=== PATIENT | female | born 1990 | race Caucasian/White ===

== ENCOUNTER → 2022-02-28 | Outpatient (CLI) | payer BC ==
--- NOTE | 2022-02-28 20:25 | XR ---
EXAMINATION TYPE: XR foot complete LT DATE OF EXAM: 02/28/2022 COMPARISON: X-ray dated 01/23/2014 INDICATION: Pain. No trauma TECHNIQUE: 3 views of the left foot FINDINGS: Sharp inferior calcaneal spur. Soft tissue swelling of the proximal portion of the dorsum of the foot . No definite acute fracture line identified. No other significant bony or articular abnormality iden tified. IMPRESSION: No definite acute fracture or dislocation. Incidental findings as described above.
== END | disposition home or self-care (01) ==
LOC: RADXRMAIN 09:51
PROVIDERS: ATTEND Podiatrist Foot Surgery
DX: R22.42 Localized swelling, mass and lump, left lower limb (principal)

== ENCOUNTER → 2022-03-21 | Outpatient (CLI) | payer BC ==
--- NOTE | 2022-03-21 13:16 | US ---
EXAMINATION TYPE: US extremity nonvasculr ltd LT DATE OF EXAM: 03/21/2022 COMPARISON: NONE CLINICAL HISTORY: I83.015,R22.42 SWELLING,M79.9 TISSUE DISORDE,M79.8. Pt states pain and swelling lef t foot x many years (10+) Left anterior foot where pt has swelling there is a fluid collection= 4.3 x 0.7 x 2.9 cm ?etiology Other areas of pain and swelling, especially posterior left foot- no abnormality could be appreciat ed by ultrasound IMPRESSION: Fluid collection is noted
== END | disposition home or self-care (01) ==
LOC: RADUSWWP 12:15
PROVIDERS: ATTEND Podiatrist Foot Surgery
DX: M79.9 Soft tissue disorder, unspecified (principal); M79.81 Nontraumatic hematoma of soft tissue; R22.42 Localized swelling, mass and lump, left lower limb

== ENCOUNTER → 2022-04-08 | Outpatient (CLI) | payer BC ==
--- NOTE | 2022-04-09 04:09 | MR ---
EXAMINATION TYPE: MR foot LT wo/w con DATE OF EXAM: 04/08/2022 COMPARISON: None HISTORY: Left lower leg/ foot pain, swelling, mass top of mid foot with marker placed. CONTRAST: Standard multiplanar, multisequence MRI departmental protocol images were obtained without contrast a nd with 7.5 mL intravenous Gadavist gadolinium contrast. In the forefoot there is abnormal increased signal on the T2 images in the forefoot soft tissues arou nd the distal metatarsals on the dorsum of the foot and also plantar aspect of the foot. This appears to be an infiltrative process with internal septations. There is enhancement with contrast in a nonu niform septation pattern. The metatarsals appear intact without evidence of a fracture. The toes are intact. Achilles tendon is intact. Plantar fascia appears normal. There is intact medial and lateral flexor tendons of the ankl e. IMPRESSION: Soft tissue mass enlargement of the mid and forefoot that is somewhat diffuse and infiltrative patter n and is nonspecific. There is some enhancement and I would consider benign and malignant process. No evidence of bony involvement.
== END | disposition home or self-care (01) ==
LOC: RADMRIMAIN 21:15
PROVIDERS: ATTEND Podiatrist Foot Surgery
DX: I83.015 Varicose veins of right lower extremity with ulcer other part of foot (principal); M79.9 Soft tissue disorder, unspecified; R22.42 Localized swelling, mass and lump, left lower limb; M79.89 Other specified soft tissue disorders
CPT/HCPCS: 73720; A9585